=== PATIENT | male | born 1970 | race Caucasian/White ===

== ENCOUNTER 2020-04-04 10:43 | Emergency (ER) | payer OTHER, SELFPAY ==
--- NOTE | ~2020-04-04 | XR_ITS ---
EXAMINATION: XR knee RT 3V DATE: 04/04/2020 11:19 INDICATION: Lateral right knee pain TECHNIQUE: AP, sunrise and lateral views of the right knee were obtained COMPARISON: None. FINDINGS: Alignment is normal. No fracture. Joint spaces are normal. No right knee joint effusion. Soft tissue s are unremarkable. IMPRESSION: 1. Negative right knee radiographs. Reviewed, dictated and finalized at location A.
--- NOTE | 2020-04-04 10:49 | ED.GENADULT ---
HPI - General Adult General Chief complaint: Extremity Injury, Lower Stated complaint: R KNEE PAIN Time Seen by Provider: 04/04/20 11:01 Source: patient Mode of arrival: ambulatory Limitations: no limitations History of Present Illness HPI narrative: 49-year-old male patient presents to the [facility] with complaints of right knee pain that started suddenly this morning when he woke up. Denies any recent injury that he is aware of. Patient states he has been seeing a chiropractor recently for right hip pain that he was diagnosed as sciatica. Patient states the pain is mostly on the lateral side of the knee and does hurt with palpation. Patient states it does hurt when he tries to ambulate. Related Data Home Medications Medication Instructions Recorded Confirmed atorvastatin 80 mg PO DAILY 04/04/20 04/04/20 lisinopril 10 mg PO DAILY 04/04/20 04/04/20 sertraline 100 mg PO DAILY 04/04/20 04/04/20 Allergies Allergy/AdvReac Type Severity Reaction Status Date / Time No Known Allergies Allergy Verified 04/04/20 10:52 Review of Systems Review of Systems: Narrative: CONSTITUTIONAL: Denies fever, chills, or sweats. EYES: Denies visual changes, redness, or discharge. ENT: Denies rhinorrhea, congestion, sore throat, or otalgia. CARDIOVASCULAR: Denies chest pain, palpitations, or edema. RESPIRATORY: Denies cough or dyspnea. GASTROINTESTINAL: Denies abdominal pain, nausea, vomiting, or diarrhea. GENITOURINARY: Denies dysuria or hematuria. SKIN: Denies rash or itching. MUSCULOSKELETAL: Denies back pain, joint pain, or myalgia. Positive right knee pain that started today NEUROLOGIC: Denies headache, numbness, or weakness. PSYCHIATRIC: Denies anxiety or depression. [facility] Past Medical History Medical History (Updated 04/04/20 @ 11:40 by MEGAN Christensen) Hidradenitis Hypertension Sciatica Comments At the time of my signature I agree with nursing past medical history, surgical, social, and family history. There is no relevant family history pertinent to the presenting complaint. Exam Narrative: Exam Narrative: GENERAL: Well-appearing, well-nourished, and in no acute distress. HEAD: Normocephalic, atraumatic. EYES: PERRLA and EOMI. ENT: Nares clear, no rhinorrhea or epistaxis. Mucous membranes moist. NECK: Supple. No lymphadenopathy CHEST: Clear to auscultation. No respiratory distress. HEART: Regular rate and rhythm. No murmur heard. Normal peripheral pulses. ABDOMEN: Soft, nontender, nondistended, normal active bowel sounds. EXTREMITIES: Patient is able to bear weight and ambulate but complains of increase in pain to the right knee. No surface trauma, STS, or obvious effusion. No overlying erythema or warmth. The R knee is without obvious asymmetry or deformity when compared to the L knee. Patient is able to do deep knee bend with symmetry, complains of pain with fully extend knee, complains of pain to the right knee with internal and external rotation. no tendernss to palpation of the patella, no effusion or ballottement. No tenderness over the infrapatellar tendon. tenderness over the lateral joint and the lateral tibial plateaus. no tenderness over the proximal fibular head. no tenderness, fullness, or mass of the popliteal fossa. No quadriceps tenderness. No laxity of the ACL, PCL, MCL, or LCL. No collateral ligament laxity to valgus or vargus stress. Negative keyon/drawer sign. Negative Ethel. Negative Apley compression and/or distraction. Distal motor and neurovascular status intact. SKIN: Warm, dry, no rash. NEURO: No focal deficits. Alert and oriented x3. Course Reevaluation(s) Reevaluation #1: Reevaluated patient after his x-ray has resulted. Discussed with him that the x-ray is negative and does not show any acute fractures to the knee. Discussed with him that this does not rule out any type of ligament or tendon injury. Discussed with him that if this continues to go on and goes past 15 days he may want to
[2020-04-04 10:53] VITALS: BP 148/89; PULSE 94; RESP 18; TEMP 36.6; O2SAT 99
== END 2020-04-04 11:45 | disposition home or self-care (01) ==
PROVIDERS: Emergency Provider Nurse Practitioner Family
DX: S89.91XA Unspecified injury of right lower leg, initial encounter (principal); X58.XXXA Exposure to other specified factors, initial encounter; I10 Essential (primary) hypertension; E78.00 Pure hypercholesterolemia, unspecified; M19.90 Unspecified osteoarthritis, unspecified site; M79.7 Fibromyalgia; Z95.810 Presence of automatic (implantable) cardiac defibrillator; Z95.5 Presence of coronary angioplasty implant and graft
CPT/HCPCS: 73562; 99213; G0463

== ENCOUNTER 2020-10-23 13:06 | Outpatient (CLI) | payer OTHER, SELFPAY ==
--- NOTE | ~2020-10-23 | MR_ITS ---
EXAMINATION: MR elbow LT wo con DATE: 10/23/2020 14:15 INDICATION: Left elbow pain TECHNIQUE: Magnetic resonance imaging (MRI) of the left elbow was performed without intravenous contr ast. Sequences included coronal, axial, and sagittal PD-weighted FS FSE and coronal, axial, and sagit mary PD-weighted FSE. COMPARISON: None FINDINGS: Osseous/other: Normal alignment. Normal marrow signal with no marrow edema, fracture, osteochondral lesion or abnor mal marrow replacing process. Tendons: Triceps, biceps brachii and brachialis tendons are normal. Common flexor tendon wad is normal. Mild tendinopathy of the common flexor tendon wad. No fluid signal intensity tear defect appreciated howev er there does appear to be some disorganization of the tendon fibers a small portion of the lateral e picondylar origin suggesting a small/mild partial-thickness tear. Ligaments: The medial and lateral collateral ligament complexes are normal. Cubital tunnel: Cubital tunnel is unremarkable with normal signal and caliber of the ulnar nerve. Fluid: Physiologic amount of fluid the elbow joint. IMPRESSION: 1. Mild tendinopathy and likely small/mild partial-thickness tear at the lateral epicondylar origin o f the common extensor tendon wad. Reviewed, dictated and finalized at location B. R ARBITRATOR IMPRESSION: 1. Mild tendinopathy and likely small/mild partial-thickness tear at the latera l epicondylar origin of the common extensor tendon wad.
== END 2020-10-23 13:07 | disposition home or self-care (01) ==
PROVIDERS: PCP Family Medicine; Visit Provider Orthopaedic Surgery
DX: M25.522 Pain in left elbow (principal)
CPT/HCPCS: 73221

== ENCOUNTER 2021-03-11 15:44 | Outpatient (CLI) | payer OTHER, SELFPAY ==
--- NOTE | 2021-03-11 15:59 | ECG_ITS ---
Measurements Intervals [place] Rate: 76 P: -5 HI: 145 QRS: -9 QRSD: 101 T: -5 QT: 378 QTc: 425 Interpretive Statements SINUS RHYTHM BORDERLINE ST-T WAVE ABNORMALITY- INFERIOR LEADS BASELINE ARTIFACT- V4-V6 BORDERLINE ECG Electronically Signed On 03-11-2021 19:35:29 CDT by Landon Sifuentes D.O.
== END 2021-03-11 15:45 | disposition home or self-care (01) ==
PROVIDERS: PCP Family Medicine; Visit Provider Anesthesiology
DX: Z01.810 Encounter for preprocedural cardiovascular examination (principal); I25.10 Atherosclerotic heart disease of native coronary artery without angina pectoris; I10 Essential (primary) hypertension
CPT/HCPCS: 93005

== ENCOUNTER → 2021-03-21 00:03 | Outpatient (CLI) | payer OTHER, SELFPAY ==
[2021-03-21 16:57] LABS: SARS-CoV-2 RNA PCR Negative
== END ==
PROVIDERS: PCP Family Medicine; Visit Provider Orthopaedic Surgery
DX: Z01.812 Encounter for preprocedural laboratory examination (principal); Z20.822 Contact with and (suspected) exposure to COVID-19
CPT/HCPCS: C9803; U0003; U0005

== ENCOUNTER 2021-03-24 01:28 | Day surgery (SDC) | payer OTHER, SELFPAY ==
[2021-03-10 14:45] VITALS: BMI 38.2
[2021-03-24] VITALS (8 sets, daily range): BP systolic 132–156; BP diastolic 28–85; PULSE 65–78; RESP 12–18; TEMP 36.4–37.1; O2SAT 94–99
[2021-03-24] MEDS: LACTATED RINGERS 1,000 ML 30 ML IV CONT ×2 (08:23→13:04)
[2021-03-24] MEDS: ACETAMINOPHEN 500 MG TABLET 1000 MG PO (08:23)
[2021-03-24] MEDS: KETOROLAC 15 MG/ML VIAL (*BKC) IV PUSH (08:24)
--- NOTE | 2021-03-24 09:02 | WPDANESEPPF ---
Anes - Initial Pre Proc Eval Procedure: Operation Date: 03/24/21 10:30 Proposed Procedures p Right Carpal Tunnel Release - Ernesto Lal MD s Excision Volar Ganglion Cyst Right Wrist - Ernesto Lal MD s Trigger Finger Release Right Hand Fourth Digit - Ernesto Lal MD Date/Time: 03/24/21 09:02 Surgeon: Ernesto Lal MD Pre Op Diagnosis: right carpal tunnel syndrome, ganglion cyst Patient Data Age: 50 Gender: M Height: 1.8 m Weight: 127.4 kg Last Vital Signs Temp 36.4 C 03/24/21 07:57 Pulse 78 03/24/21 07:57 Resp 18 03/24/21 07:57 BP 156/85 H 03/24/21 07:57 Pulse Ox 99 03/24/21 07:57 Allergies Allergy/AdvReac Type Severity Reaction Status Date / Time No Known Allergies Allergy Verified 03/24/21 08:29 Home Medications Medication Instructions Recorded Confirmed Type atorvastatin 80 mg PO HS 04/04/20 03/24/21 History sertraline 100 mg PO DAILY 04/04/20 03/24/21 History albuterol sulfate 90 mcg/actuation 1 inh INHALATION Q4-6H PRN 10/20/20 03/24/21 History breath activated powder inhaler aspirin 81 mg tablet,delayed 81 mg PO DAILY 10/20/20 03/24/21 History release losartan 25 mg tablet 25 mg PO DAILY 10/20/20 03/24/21 History metoprolol tartrate 25 mg tablet 25 mg PO BID 10/20/20 03/24/21 History famotidine [Acid Senior Quality Assurance Specialist 10 mg PO DAILY PRN 03/10/21 03/24/21 History (famotidine)] kmqloyat-sxx-VG-lycopen-lutein 1 tablet PO DAILY 03/10/21 03/24/21 History [Centrum Silver Men] oxycodone-acetaminophen 1 tablet PO Q6-8H PRN 03/10/21 03/24/21 History umeclidinium [Incruse Ellipta] 1 inh INHALATION DAILY 03/10/21 03/24/21 History Patient hx anesthesia problems: none Family hx anesthesia problems: none PMFSH Past Medical History Medical History COPD (chronic obstructive pulmonary disease) Degenerative disorder of bone Hidradenitis History of depression Hypertension Sciatica Social History Social History Smoking packs per day: 1.5 Smoking cigarettes per day: 30.0 Years smoked: 35 Smoking pack-years: 52.50 Smoking status: Current every day smoker Tobacco type: cigarettes Second hand tobacco smoke exposure: Yes Alcohol intake: current Drinks per week: 5 Alcohol use details: NIA Substance use: current Substance use type: marijuana Other substance usage details: MARIJUANA 1X/WEEK Last use: 03/07/2021 Living arrangements: alone Spiritual care concerns: No Anes - Eval Final PreProcedure Day of Procedure 03/24/21 09:02 Patient weight: obese Heart: regular rate and rhythm Lungs: clear to auscultation Airway: Mallampati scale class II Neurological: alert and oriented Last oral intake: >/= 8 hours ASA classification: III Emergent: no Anesthetic plan: proceed Anesthesia type and monitoring: general LMA and standard monitoring Informed Consent: The patient's anesthetic plan and its attendant risks and benefits were discussed with the patient/family/POA. Questions were solicited and answers provided to the satisfaction of the patient/family/POA.
--- NOTE | 2021-03-24 11:02 | WPDHPUPDATE1 ---
History and Physical Update Update Date/Time: 03/24/21 11:02 History and Physical has been reviewed, including an updated exam of the patient. There are NO changes in the patient's condition. Risks, benefits, and alternatives have been discussed and questions answered. Patient agrees to proceed with procedure.
[2021-03-24] MEDS: ceFAZolin 3 GM/D5W 100 ML 100 ML IVPB (11:29)
[2021-03-24] MEDS: BUPIVACAINE/EPINEPHRINE 0.5% 10 ML VIAL 4 ML INFILTRATE (11:54)
--- NOTE | 2021-03-24 17:06 | P.OP_ITS ---
Procedure Note - Detailed Date of Procedure 03/24/21 Pre-op Diagnosis right carpal tunnel syndrome, ganglion cyst, trigger finger (4th). Post-op Diagnosis same Procedure Performed 1. Carpal tunnel release right hand 2. Volar ganglion in cyst excision right wrist 3. Fourth trigger finger release Surgeon Ernesto Lal MD Pediatric Pathologist Laisha Gutiérrez PA-C Anesthesia general and regional Description of Procedure Preoperative antibiotics were given. General anesthetic was administered. Well-padded tourniquet applied. Arm prepped and draped in the usual sterile fashion. Longitudinal incision the carpal canal using typical anatomic landmarks. Under direct vision the transverse carpal ligament was released sharply. Release was carried into the distal forearm. The canal was widely patent. Wound closed with interrupted Prolene suture. The trigger finger was released to the 4th ray with longitudinal incision under direct vision. Tendons were pulled into the wound and found to be very mobile. Radial volar ganglion cyst was exposed transversely. Careful blunt dissection was performed around the cyst with tenotomy scissors. The cyst was removed in its entirety. The fluid was very clear and gelatinous. No pathological findings. Perforating vessel to the radial artery was losing after the tourniquet was released. This tiny rent was repaired with 6-0 Prolene suture. The wound was closed with 3-0 Monocryl suture followed by running 4-0 Monocryl suture. Sterile dressing was applied with a volar plaster. The patient was brought to the recovery room in stable condition. No complications. Estimated blood loss 5 mL. Estimated Blood Loss -5.0 Drains No Packing No Pathology yes Complications No immediate complications Condition stable Disposition PACU
== END 2021-03-24 14:57 | disposition home or self-care (01) ==
PROVIDERS: PCP Family Medicine; Visit Provider Orthopaedic Surgery
PROC: (CPT 64721; principal; 2021-03-24 10:30)
PROC: (CPT 25111; 2021-03-24 10:30)
PROC: (CPT 26055; 2021-03-24 10:30)
DX: G56.01 Carpal tunnel syndrome, right upper limb (principal); M65.341 Trigger finger, right ring finger; M67.431 Ganglion, right wrist; J44.9 Chronic obstructive pulmonary disease, unspecified; L73.2 Hidradenitis suppurativa; F32.9 Major depressive disorder, single episode, unspecified; Z79.82 Long term (current) use of aspirin; Z79.51 Long term (current) use of inhaled steroids; F17.210 Nicotine dependence, cigarettes, uncomplicated; F12.90 Cannabis use, unspecified, uncomplicated; E66.9 Obesity, unspecified; Z68.39 Body mass index [BMI] 39.0-39.9, adult
CPT/HCPCS: 25111; 26055; 64721; 88304; 88305; 93005; A9270; C9803; J0690; J1100; J1885; J2250; J2370; J2405; J2704; J3010; J7120; U0003; U0005